=== PATIENT | female | born 1950 | race Caucasian/White ===

== ENCOUNTER → 2017-03-31 | Outpatient (CLI) | payer BC ==
[~2017-03-31] MED LIST: CITA10TA4 PO; FISHOIL PO; MULT-506 PO; VITAMIN B12 PO; VITAMIN D3 PO; VITAMIN E PO
== END | disposition home or self-care (01) ==
LOC: C.MAMM 07:51
PROVIDERS: ATTEND Family Medicine
DX: M85.88 Other specified disorders of bone density and structure, other site (principal); M85.851 Other specified disorders of bone density and structure, right thigh; M85.852 Other specified disorders of bone density and structure, left thigh; Z78.0 Asymptomatic menopausal state

== ENCOUNTER → 2017-05-20 | Outpatient (CLI) | payer BC ==
--- NOTE | 2017-05-20 18:12 | DIAGNOSTIC IMAGING REPORT ---
R ANKLE MIN 3 VIEWS ROUTINE HISTORY: 66 years-old Female INJURY acute right ankle pain status post injury COMPARISON: Right foot radiographs of same day TECHNIQUE: 3 views of the right ankle FINDINGS: Bones are mildly demineralized. Degenerative changes are noted about the first MTP joint. No acute fracture or dislocation. No osteochondral defect of the talar dome. Mild soft tissue swelling is noted about the ankle. Mild dorsal spurring about the midfoot. Negative for opaque foreign body. IMPRESSION: Mild soft tissue swelling without acute fracture or dislocation. The above report was generated using voice recognition software. It may contain grammatical, syntax or spelling errors. Electronically signed by: Víctor Mcqueen M.D. 05/20/2017 6:11 PM Dictated Date/Time: 05/20/2017 6:09 PM
--- NOTE | 2017-05-20 18:13 | DIAGNOSTIC IMAGING REPORT ---
RIGHT FOOT 3 VIEWS HISTORY: Right foot INJURY COMPARISON: None. FINDINGS: There is no fracture or dislocation. Mild soft tissue swelling anterior to the ankle. Deformity within the first metatarsal may be due to old trauma. Mild osteoarthritis at the first MTP joint. Second toe PIP joint is fused. No radiopaque foreign bodies. IMPRESSION: No fracture or dislocation within the right foot. Electronically signed by: Maurisio Dela Cruz M.D. 05/20/2017 6:11 PM Dictated Date/Time: 05/20/2017 6:09 PM
== END | disposition home or self-care (01) ==
LOC: C.RAD 17:27
PROVIDERS: ATTEND Family Medicine
DX: S99.911A Unspecified injury of right ankle, initial encounter (principal); S99.921A Unspecified injury of right foot, initial encounter; X58.XXXA Exposure to other specified factors, initial encounter